=== PATIENT | male | born 1950 | race African-American/Black ===

== ENCOUNTER → 2017-10-14 | Outpatient (CLI) | payer MEDICARE, OTHER ==
--- NOTE | 2017-10-14 15:44 | RADIOLOGY REPORT (SQ) ---
EXAM DESCRIPTION: CTA CHEST COMPLETED DATE/TIME: 10/14/2017 3:29 pm REASON FOR STUDY: CHEST PAIN, UNSPECIFIED R07.9 CHEST PAIN, UNSPECIFIED COMPARISON: CTA chest 02/17/2016, 10/30/2014 Chest films 02/17/2016 TECHNIQUE: CT scan of the chest performed using helical scanning technique with dynamic intravenous contrast injection. Images reviewed with lung, soft tissue and bone windows. Reconstructed coronal and sagittal MPR images reviewed. Additional 3 dimensional post-processing performed to develop Maximal Intensity Projection images ([place] P). All images stored on PACS. All CT scanners at this facility use dose modulation, iterative reconstruction, and/or weight based d osing when appropriate to reduce radiation dose to as low as reasonably achievable (ALARA). [facility]: Dose Right [facility]: CareDose [facility]: Dose Right [facility]: Teradose 4D [facility]: [employer] CONTRAST TYPE AND DOSE: contrast/concentration: Isovue 370.00 mg/ml; Total Contrast Delivered: 75.0 ml; Total Saline Delivered: 110.0 ml Contrast bolus optimized for the pulmonary arteries and thoracic aorta. RENAL FUNCTION: Creatinine 1.4 RADIATION DOSE: CT Rad equipment meets quality standard of care and radiation dose reduction techniq ues were employed. CTDIvol: 11.3 - 15.5 mGy. DLP: 585 mGy-cm. . LIMITATIONS: None. FINDINGS: LUNGS AND PLEURA: Minimal bandlike scarring in the left lateral costophrenic sulcus and ri ght posterior costophrenic sulcus. No fluffy alveolar infiltrates worrisome for edema or pneumonia. No pleural effusion. No pneumothor ax. Airways are patent. AORTA AND GREAT VESSELS: No aneurysm. No thoracic aortic aneurysm or dissection. HEART: No pericardial effusion. No significant coronary artery calcifications. PULMONARY ARTERIES: No emboli visualized in the main pulmonary arteries or the segmental branches. HILAR AND MEDIASTINAL STRUCTURES: No identified masses or abnormal nodes. HARDWARE: None in the chest. UPPER ABDOMEN: Fatty liver. Less than 1 cm cyst left upper pole kidney. THYROID AND OTHER SOFT TISSUES: No masses. No adenopathy. BONES: No acute or significant finding. 3D MIPS: Confirm above findings. OTHER: No other significant finding. IMPRESSION: No CT findings to explain history of chest pain. COMMENT: Quality ID # 436: Final reports with documentation of one or more dose reduction techniques (e.g., Automated exposure control, adjustment of the mA and/or kV according to patient size, use of iterative reconstruction technique) TECHNICAL DOCUMENTATION: JOB ID: [id number] [employer]- All Rights Reserved Reading location - IP/workstation name: [email or web address]
== END ==
LOC: RAD 15:03
PROVIDERS: ATTEND Internal Medicine
DX: R07.9 Chest pain, unspecified (principal)
CPT/HCPCS: 71275; 82565

== ENCOUNTER → 2017-10-19 | Outpatient (CLI) | payer MEDICARE, OTHER ==
[~2017-10-19] MED LIST: REGADENOSON INJ 0.4 MG/5 ML DISP.SYRIN IV ONE
--- NOTE | 2017-10-19 20:34 | RADIOLOGY REPORT ---
STRESS TEST REPORT PATIENT NAME: CIARAN EVANS ROOM#: DATE OF SERVICE: 10/19/2017 AGE: 67Y ORDER#: [id number] REFERRING MD: RAGHAVENDRA LOPES M.D. INDICATION: For assessment of atypical chest pain. PROCEDURE PERFORMED: Rest/stress single-isotope Cardiolite SPECT imaging with IV Lexiscan and gated SPECT imaging. CLINICAL HISTORY: This 67-year-old male with no coronary artery disease, but has coronary risk factors of diabetes, hypertension and question of tobacco. Current symptomatology includes chest pain. REPORT Patient received IV Lexiscan of 0.4 mg infused over 10 seconds. The resting heart rate was 94 BPM and increased to 122 BPM at end infusion. The resting blood pressure was 133/72 and increased to 169/80 at end infusion. Patient had symptoms of mild shortness of breath. No chest pain. The resting 12-lead EKG showed sinus rhythm with PVCs; nonspecific ST-T changes were seen. At end infusion, sinus tachycardia of 122 was seen, with rare PVC. Diffuse increased nonspecific ST-T changes were seen, lasting up to 2 minutes, post stress. Myocardial perfusion imaging was performed at rest 60 minutes following the injection of 14.4 mCi of Cardiolite. Ten seconds after the IV Lexiscan injection, patient was injected with 44.8 mCi of Cardiolite and flushed. Gated post stress tomographic imaging was performed 60 minutes after stress. SUMMARY OF FINDINGS/IMPRESSION: The overall quality of the study is good. Left ventricular cavity is noted to be normal in size on both the rest and the stress studies. There is no evidence of transient ischemic dilatation of the ventricle. SPECT images show no evidence of IV Lexiscan-induced reversible ischemia and no fixed perfusion defect. The gated SPECT imaging showed normal motion contraction of both LV segments. The left ventricular ejection fraction was calculated to be 62%. The TID ratio was 1.07. IMPRESSION: Myocardial perfusion imaging is normal. There is no evidence of IV Lexiscan-induced reversible ischemia and no fixed perfusion defect. Overall left ventricular systolic function is normal, with no regional wall motion abnormality. No prior study for comparison. INTERPRETING PHYSICIAN: CRAIG LEE M.D. /: [id number] TT: 2017 ID: [id number] /: [id number] TD: [id number] JOB: [id number] cc:Danica ENGLE M.D. >
== END ==
LOC: RAD 06:43
PROVIDERS: ATTEND Internal Medicine
DX: R07.9 Chest pain, unspecified (principal)
CPT/HCPCS: 93017; 78452; A9500; J2785; Q9969

== ENCOUNTER → 2020-04-29 | Outpatient (CLI) | payer MEDICARE, OTHER ==
--- NOTE | 2020-04-29 12:16 | RADIOLOGY REPORT (SQ) ---
EXAM DESCRIPTION: VENOUS UNILATERAL LOWER IMAGES COMPLETED DATE/TIME: 04/29/2020 12:01 pm REASON FOR STUDY: RLE LOCALIZED SWELLING MASS/LUMP R07.9 CHEST PAIN, UNSPECIFIED R22.41 LOCALIZED SWELLING, MASS AND LUMP, RIGHT LOWER LIMB COMPARISON: None. TECHNIQUE: Dynamic and static chapa scale and color images acquired of the right leg venous system. S elected spectral images acquired with additional compression and augmentation maneuvers. The contrala teral common femoral vein and saphenofemoral junction were also imaged. Images stored on PACS. LIMITATIONS: None. FINDINGS: COMMON FEMORAL: Normal phasicity, compression and augmentation. No visualized echogenic ma terial on chapa scale. No defects on color images. FEMORAL: Normal compression and augmentation. No visualized echogenic material on chapa scale. No defe cts on color images. POPLITEAL: Normal compression, augmentation. No visualized echogenic material on chapa scale. No defec ts on color images. CALF VESSELS: Normal compression, augmentation. No visualized echogenic material on chapa scale. No de fects on color images. GSV and SSV: Normal compression, augmentation. No visualized echogenic material on chapa scale. No def ects on color images. ANY DEEP VENOUS INSUFFICIENCY: Not assessed. ANY EVIDENCE OF POPLITEAL CYST: No. OTHER: No other findings. CONTRALATERAL COMMON FEMORAL VEIN: Normal phasicity, compression and augmentation. No visualized echogenic material on chapa scale. No de fects on color images. IMPRESSION: NO EVIDENCE OF DVT OR SVT IN THE RIGHT LOWER EXTREMITY. TECHNICAL DOCUMENTATION: JOB ID: [id number] 2010 [employer]- All Rights Reserved Reading location - IP/workstation name: [email or web address]
--- NOTE | 2020-04-29 13:26 | RADIOLOGY REPORT (SQ) ---
EXAM DESCRIPTION: CTA CHEST IMAGES COMPLETED DATE/TIME: 04/29/2020 11:06 am REASON FOR STUDY: R07.9 CHEST PAIN, UNSPECIFIED R07.9 CHEST PAIN, UNSPECIFIED R22.41 LOCALIZED SWE LLING, MASS AND LUMP, RIGHT LOWER LIMB COMPARISON: 10/14/2017 TECHNIQUE: CT scan of the chest performed using helical scanning technique with dynamic intravenous contrast injection. Images reviewed with lung, soft tissue and bone windows. Reconstructed coronal and sagittal MPR images reviewed. Additional 3 dimensional post-processing performed to develop Maximal Intensity Projection images ([place] P). All images stored on PACS. All CT scanners at this facility use dose modulation, iterative reconstruction, and/or weight based d osing when appropriate to reduce radiation dose to as low as reasonably achievable (ALARA). [facility]: Dose Right [facility]: CareDose [facility]: Dose Right [facility]: Teradose 4D [facility]: [employer] CONTRAST TYPE AND DOSE: contrast/concentration: Isovue 350.00 mmol/ml; Total Contrast Delivered: 80. 0 ml; Total Saline Delivered: 65.0 ml Contrast bolus adequate for pulmonary arteries and aorta. RENAL FUNCTION: Creatinine 1.3 RADIATION DOSE: CT Rad equipment meets quality standard of care and radiation dose reduction techniq ues were employed. CTDIvol: 15.5 - 24.4 mGy. DLP: 618 mGy-cm. . LIMITATIONS: Less than optimal opacification of the pulmonary arteries. FINDINGS: LUNGS AND PLEURA: No masses, infiltrates, or pneumothorax. No pleural effusions or pleura l calcifications. AORTA AND GREAT VESSELS: No aneurysm. No dissection. HEART: No pericardial effusion. No significant coronary artery calcifications. PULMONARY ARTERIES: No significant emboli centrally or in the major branches. HILAR AND MEDIASTINAL STRUCTURES: No identified masses or abnormal nodes. HARDWARE: None in the chest. UPPER ABDOMEN: No significant findings. Limited exam. THYROID AND OTHER SOFT TISSUES: No masses. No adenopathy. BONES: No acute or significant finding. 3D MIPS: Confirm above findings. OTHER: No other significant finding. IMPRESSION: Slightly limited study. No pulmonary emboli are seen. There is no aortic aneurysm or d issection. COMMENT: Quality ID # [id number]: Final reports with documentation of one or more dose reduction techniques (e.g., Automated exposure control, adjustment of the mA and/or kV according to patient size, use of iterative reconstruction technique) TECHNICAL DOCUMENTATION: JOB ID: [id number] 2010 [email or web address]- All Rights Reserved Reading location - IP/workstation name: [email or web address]
== END ==
LOC: RAD 10:37
PROVIDERS: ATTEND Internal Medicine
DX: R07.9 Chest pain, unspecified (principal); R22.41 Localized swelling, mass and lump, right lower limb
CPT/HCPCS: 71275; 82565; 93971